=== PATIENT | female | born 1960 | race Caucasian/White ===

== ENCOUNTER 2018-07-30 16:58 | Emergency (ER) | payer SELFPAY ==
[2018-07-30 17:00] VITALS: BP 152/90
[2018-07-30] MEDS ORDERED: MVI, ADULT NO.4 WITH VIT K 10 ML, FOLIC ACID SYRINGE for ER 1 MG, THIAMINE INJ 100 MG i... IV ONE ×4 (17:15)
[2018-07-30 17:38] LABS: BASO % 1 % (0-3); EOS # 0.1 x10^3/uL (0.0-0.7); EOS % 2 % (0-3); HEMATOCRIT 42.2 % (36.0-47.0); HEMOGLOBIN 14.6 g/dL (12.0-15.5); LYMPH # 1.5 x10^3/uL (1.0-4.8); LYMPH % 30 % (24-48); MEAN CORPUSCULAR HEMOGLOBIN 34 pg (25-35); MEAN CORPUSCULAR HGB CONC 35 g/dL (31-37); MEAN CORPUSCULAR VOLUME 99 fL (79-100); MONO # 0.5 x10^3/uL (0.0-1.1); MONO % 10 % (0-9); NEUT # 2.8 x10^3uL (1.8-7.7); NEUT % 57 % (31-73); PLATELET COUNT 287 x10^3/uL (140-400); RED BLOOD COUNT 4.27 x10^6/uL (3.50-5.40); RED CELL DISTRIBUTION WIDTH 12.8 % (11.5-14.5)
--- NOTE | 2018-07-30 17:48 | RAD ---
CT HEAD AND CERVICAL SPINE WO Indication: Patient fell. MSC, intoxication, unccoperative. Attempts to rescan motion unsuccessful. Pt was banging inside of gantry during scan and trying to jump from table, though secured and technologist in room. Best exam given circumstances.
Exposure: One or more of the following individualized dose reduction techniques were utilized for this examination: 1. Automated exposure control 2. Adjustment of the mA and/or kV according to patient size 3. Use of iterative reconstruction technique. Comparison: None are available. Contrast: None Suboptimal exam quality, due to patient movement. HEAD: No definite acute intracranial hemorrhage or abnormal extra-axial fluid collection. No evidence of midline shift. Mild prominence of ventricles and sulci as can be seen with mild atrophy. Orbits grossly unremarkable. Paranasal sinuses grossly clear. No obvious depressed skull fracture although a point of impact is not known. Impression: Suboptimal exam, due to image degradation by patient motion. No definite acute findings, but consider follow-up imaging when feasible. CERVICAL SPINE: Poor visualization of the cervical occipital junction but appears to be intact. No definite acute fracture. Mild rotation of C1 relative to C2 could be positional or due to atlantoaxial rotary fixation if of concern. Mild degenerative spondylosis. No evidence of high-grade central osseous spinal stenosis. No evidence of an acute fracture. No significant subluxation. No significant facet joint subluxation. Degenerative changes at the facet joints. No evidence of prevertebral soft tissue swelling or hematoma. Lung apices appear grossly clear with mild chronic type cystic or emphysematous change in the right lung apex. Impression: Suboptimal exam due to image degradation by patient motion. Degenerative changes. No definite acute fracture or subluxation. Electronically signed by: Shashank Felton MD (07/30/2018 5:44 PM) [place] [id number]
[2018-07-30 17:56] LABS: ALBUMIN 4.1 g/dL (3.4-5.0); ALBUMIN/GLOBULIN RATIO 1.1 (1.0-1.7); CALCIUM 9.1 mg/dL (8.5-10.1); GFR 57.4; POTASSIUM 3.8 mmol/L (3.5-5.1); TOTAL BILIRUBIN 0.2 mg/dL (0.2-1.0)
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
== END 2018-07-30 18:00 | disposition home or self-care (01) ==
LOC: ER 16:58
DX: F10.129 Alcohol abuse with intoxication, unspecified (principal); R51 Headache; R45.851 Suicidal ideations; Y90.9 Presence of alcohol in blood, level not specified; W18.30XA Fall on same level, unspecified, initial encounter; Y93.89 Activity, other specified; Y92.89 Other specified places as the place of occurrence of the external cause; Y99.8 Other external cause status
CPT/HCPCS: 36415; 70450; 72125; 80053; 85025; 99284

== ENCOUNTER 2018-07-31 11:40 | Inpatient (IN) | payer OTHER ==
[2018-07-31] VITALS (8 sets, daily range): BP systolic 151–196; BP diastolic 73–117
[~2018-07-31] VITALS: Ht 167.6 cm; Wt 70.3 kg
--- NOTE | 2018-07-31 12:26 | EKG ---
[address] [address] Test Date: 2018-07-31 Test Time: 12:06:41 Pat Name: ETHAN SMITH Department: Room: Gender: F Periodontist: : 1960 Requested By: MANISHA DOS SANTOS Order Number: [id number] Reading MD: Measurements Intervals [place] Rate: 93 P: 43 IN: 138 QRS: 83 QRSD: 110 T: 51 QT: 372 QTc: 465 Interpretive Statements SINUS RHYTHM QRS(T) CONTOUR ABNORMALITY CONSIDER INFERIOR MYOCARDIAL DAMAGE POSSIBLY ABNORMAL ECG RI6.01 Unconfirmed report No previous ECG available for comparison
[2018-07-31 12:37] LABS: BASO % 1 % (0-3); EOS # 0.1 x10^3/uL (0.0-0.7); EOS % 1 % (0-3); HEMATOCRIT 43.9 % (36.0-47.0); HEMOGLOBIN 14.9 g/dL (12.0-15.5); LYMPH # 1.2 x10^3/uL (1.0-4.8); LYMPH % 16 % (24-48); MEAN CORPUSCULAR HEMOGLOBIN 34 pg (25-35); MEAN CORPUSCULAR HGB CONC 34 g/dL (31-37); MEAN CORPUSCULAR VOLUME 99 fL (79-100); MONO # 0.8 x10^3/uL (0.0-1.1); MONO % 11 % (0-9); NEUT # 5.5 x10^3uL (1.8-7.7); NEUT % 71 % (31-73); PLATELET COUNT 309 x10^3/uL (140-400); RED BLOOD COUNT 4.42 x10^6/uL (3.50-5.40); WHITE BLOOD COUNT 7.7 x10^3/uL (4.0-11.0)
[2018-07-31] MEDS ORDERED: SODIUM BICARB ADULT 8.4% 50 MEQ/50 ML DISP.SYRIN. IV ONE (12:45)
[2018-07-31 12:51] LABS: ALBUMIN 3.9 g/dL (3.4-5.0); ALBUMIN/GLOBULIN RATIO 1.1 (1.0-1.7); GFR 57.4; POTASSIUM 3.9 mmol/L (3.5-5.1); TOTAL BILIRUBIN 0.2 mg/dL (0.2-1.0); TOTAL PROTEIN 7.6 g/dL (6.4-8.2)
[2018-07-31] MEDS ORDERED: IV NORMAL SALINE 1,000ML 1,000 ML IV ONE (13:00)
[2018-07-31 13:03] LABS: ACETAMIN < 2.0 mcg/mL (10-30); ETHANOL 314 mg/dL (0-10)
--- NOTE | 2018-07-31 14:20 | PHYS DOC ---
Past History Past Medical History: Alcoholism, Hypertension Past Surgical History: No Surgical History Alcohol Use: Heavy Drug Use: None Adult General Chief Complaint Chief Complaint: SUICDAL IDEATION HPI HPI 57 yo female presents EMS accompanied by police for suicide attempt and drug overdose. The patient was reported to take a handful of sertraline 50 mg tablets. Police was called. While the police were there the patient went into the bathroom and took additional sertraline and fluoxetine pills. It is estimated that she took at least 20 sertraline 50 mg tablets and at least 15 fluoxetine 20 mg tablets. Patient has also been drinking alcohol this morning. The [place] [employer] is seeking involuntary admission. The patient has some nausea, but denies any other complaints. Review of Systems Review of Systems Constitutional: Denies fever or chills [] Eyes: Denies change in visual acuity, redness, or eye pain [] HENT: Denies nasal congestion or sore throat [] Respiratory: Denies cough or shortness of breath [] Cardiovascular: No additional information not addressed in HPI [] GI: nausea, vomiting [] : Denies dysuria or hematuria [] Musculoskeletal: Denies back pain or joint pain [] Integument: Denies rash or skin lesions [] Neurologic: Denies headache, focal weakness or sensory changes [] Endocrine: Denies polyuria or polydipsia [] All other systems were reviewed and found to be within normal limits, except as documented in this note. Current Medications Current Medications Current Medications Medications (Trade) Dose Ordered Sig/Riley Start Time Stop Time Status Last Admin Dose Admin Sodium Bicarbonate (Sodium Bicarb Adult 8.4% Syr) 100 meq 1X ONCE 07/31/18 12:45 07/31/18 12:46 DC 07/31/18 12:59 100 MEQ Sodium Chloride 1,000 ml @ 1,000 mls/hr 1X ONCE 07/31/18 13:00 07/31/18 13:59 DC 07/31/18 12:58 1,000 MLS/HR Allergies Allergies Allergies Coded Allergies Type Severity Reaction Last Updated Verified Penicillins Allergy Intermediate 07/30/18 Yes Physical Exam Physical Exam Constitutional: Well developed, well nourished, no acute distress, non-toxic appearance. [] HENT: Normocephalic, atraumatic, bilateral external ears normal, oropharynx moist, no oral exudates, nose normal. [] Eyes: PERRLA, EOMI, conjunctiva normal, no discharge. [] Neck: Normal range of motion, no tenderness, supple, no stridor. [] Cardiovascular:Heart rate regular rhythm, tachycardic, rate 114, no murmur [] Lungs & Thorax: Bilateral breath sounds clear to auscultation [] Abdomen: Bowel sounds normal, soft, no tenderness, no masses, no pulsatile masses. [] Skin: Warm, dry, no erythema, no rash. [] Back: No tenderness, no CVA tenderness. [] Extremities: No tenderness, no cyanosis, no clubbing, ROM intact, no edema. [] Neurologic: Alert and oriented X 3, normal motor function, normal sensory function, no focal deficits noted. [] Psychologic: Affect depressed, judgement impaired, mood depressed. [] Current Patient Data Vital Signs Vital Signs Date Time Temp Pulse Resp B/P (MAP) Pulse Ox O2 Delivery O2 Flow Rate FiO2 07/31/18 13:49 114 20 165/95 (118) 95 Room Air 07/31/18 11:40 97.8 Lab Results Laboratory Tests Test 07/31/18 12:15 White Blood Count 7.7 x10^3/uL (4.0-11.0) # Red Blood Count 4.42 x10^6/uL (3.50-5.40) Hemoglobin 14.9 g/dL (12.0-15.5) Hematocrit 43.9 % (36.0-47.0) Mean Corpuscular Volume 99 fL (79-100) Mean Corpuscular Hemoglobin 34 pg (25-35) Mean Corpuscular Hemoglobin Concent 34 g/dL (31-37) Red Cell Distribution Width 13.0 % (11.5-14.5) Platelet Count 309 x10^3/uL (140-400) Neutrophils (%) (Auto) 71 % (31-73) Lymphocytes (%) (Auto) 16 % (24-48) L Monocytes (%) (Auto) 11 % (0-9) H Eosinophils (%) (Auto) 1 % (0-3) Basophils (%) (Auto) 1 % (0-3) Neutrophils # (Auto) 5.5 x10^3uL (1.8-7.7) Lymphocytes # (Auto) 1.2 x10^3/uL (1.0-4.8) Monocytes # (Auto) 0.8 x10^3/uL (0.0-1.1) Eosinophils # (Auto) 0.1 x10^3/uL (0.0-0.7) Basophils # (Auto) 0.0 x10^3/uL (0.0-0.2) Sodium Level 133 mmol/L (136-145) L Potassium Level 3.9 mmol/L (3.5-5.1) Chloride Level 97 mmol/L (98-107) L Carbon Dioxide Level 21 mmol/L (21-32) Anion Gap 15 (6-14) H Blood Urea Nitrogen 6 mg/dL (7-20) L Creatinine 1.0 mg/dL (0.6-1.0) Estimated GFR (Cockcroft-Gault) 57.4 BUN/Creatinine Ratio 6 (6-20) Glucose Level 127 mg/dL (70-99) H Calcium Level 9.0 mg/dL (8.5-10.1) Total Bilirubin 0.2 mg/dL (0.2-1.0) Aspartate Amino Transferase (AST) 31 U/L (15-37) Alanine Aminotransferase (ALT) 29 U/L (14-59) Alkaline Phosphatase 88 U/L (46-116) Total Protein 7.6 g/dL (6.4-8.2) Albumin 3.9 g/dL (3.4-5.0) Albumin/Globulin Ratio 1.1 (1.0-1.7) Acetaminophen Level < 2.0 mcg/mL (10-30) L Acetaminophen Last Dose Date 07/31/18 Acetaminophen Last Dose Time 1100 Ethyl Alcohol Level 314 mg/dL (0-10) H EKG EKG Sinus rhythm, rate 93, normal axis, no ST elevations or depressions, QTC 465.[] Radiology/Procedures Radiology/Procedures [] Course & Med Decision Making Course & Med Decision Making Pertinent Labs and Imaging studies reviewed. (See chart for details) The patient has been cooperative in the ED. She is accompanied by police. Her initial EKG showed a prolonged QTC of 465. She ingested these pills 90 minutes prior to arrival. I consult did poison control and they recommended 2 A of bicarbonate and serial EKGs. Her repeat EKG shows sinus tachycardia, rate 114, QTc of 472. The patient is alert and oriented. She is not complaining of anything at this time. Her alcohol level is over 300. Acetaminophen is negative. Drug screen is pending. I discussed the patient with the hospitalist, Dr. John and he has agreed to admit the patient to the ICU. Psychiatric consult was pending. Involuntary admission paperwork is also pending psych eval. 60 minutes of critical care time was spent on this patient exclusive of other billable procedures. [] Dragon Disclaimer Dragon Disclaimer This electronic medical record was generated, in whole or in part, using a voice recognition dictation system. Departure Departure: Impression: Primary Impression: Suicide attempt by multiple drug overdose Additional Impressions: Prolonged QT interval Alcohol intoxication Disposition: ADMITTED INPATIENT Condition: GUARDED Referrals: PCP,NO (PCP) Problem Qualifiers Primary Impression: Suicide attempt by multiple drug overdose Encounter type: initial encounter Qualified Codes: T50.902A - Poisoning by unspecified drugs, medicaments and biological substances, intentional self-harm , initial encounter Additional Impressions: Alcohol intoxication Complication of substance-induced condition: uncomplicated Qualified Codes: F10.920 - Alcohol use, unspecified with intoxication, uncomplicated MANISHA DOS SANTOS DO Jul 31, 2018 14:20
[2018-07-31 15:13] LABS: BARBITURATES NEG (NEG); BENZODIAZEPINES NEG (NEG); CANNABINOIDS NEG (NEG); COCAINE NEG (NEG); METHADONE NEG (NEG); OPIATES NEG (NEG); PHENCYCLIDINE NEG (NEG)
[2018-07-31 15:14] LABS: AMPHETAMINE/METHAMPHETAMINE NEG (NEG)
[2018-07-31 15:19] LABS: BACTERIA,URINE MOD /HPF (0-FEW); BILIRUBIN,URINE NEG (NEG); CLARITY,URINE HAZY; COLOR,URINE YELLOW; GLUCOSE,URINE NEG (NEG); HYALINE CASTS, URINE OCC /HPF; NITRITE,URINE NEG (NEG); RBC,URINE 0 /HPF (0-2); SQUAMOUS EPITHELIAL CELL,UR FEW /LPF; UROBILINOGEN,URINE 0.2 mg/dL (0.2 mg/dL)
[2018-07-31] MEDS ORDERED: ONDANSETRON PF 4 MG/2 ML VIAL. IV PRN (15:30)
[2018-07-31] MEDS ORDERED: LORazepam 2 MG/ML VIAL IV PRN ×2 (17:30)
[2018-07-31] MEDS ORDERED: chlordiazePOXIDE HCL 25 MG CAPSULE PO PRN ×2 (17:30)
[2018-07-31] MEDS: IV NORMAL SALINE 1,000ML 1,000 ML IV SCH (18:09)
[2018-07-31] MEDS: LORazepam 2 MG/ML VIAL IV PRN ×3 (20:06→23:35)
[2018-07-31] MEDS ORDERED: IV NORMAL SALINE 1,000ML 1,000 ML IV SCH (20:30)
[2018-07-31] MEDS ORDERED: diphenhydrAMINE 50 MG/ML VIAL IVP PRN (20:30)
[2018-07-31] MEDS ORDERED: HALOPERIDOL LACT 5 MG/ML VIAL. IM PRN (20:30)
[2018-07-31] MEDS ORDERED: MVI, ADULT NO.4 WITH VIT K 10 ML, THIAMINE INJ 100 MG, FOLIC ACID INJ 1 MG in IV NORMAL... IV ONE ×4 (21:00)
[2018-07-31 21:31] LABS: CREATININE 0.9 mg/dL (0.6-1.0); GFR 64.8; POTASSIUM 3.6 mmol/L (3.5-5.1)
[2018-07-31] MEDS: cloNIDine HCL 0.1 MG TABLET PO PRN (22:22)
[2018-08-01] VITALS (32 sets, daily range): BP systolic 121–212; BP diastolic 55–105
[2018-08-01] MEDS: cloNIDine HCL 0.1 MG TABLET PO PRN (00:59)
[2018-08-01] MEDS: ENALAPRILAT 2.5 MG/2 ML VIAL. IV PRN ×2 (03:11→14:06)
[2018-08-01] MEDS: IV NORMAL SALINE 1,000ML 1,000 ML IV SCH ×2 (04:30→14:59)
--- NOTE | 2018-08-01 06:09 | EKG ---
[address] [address] Test Date: 2018-07-31 Test Time: 21:59:10 Pat Name: ETHAN SMITH Department: Room: [facility]02 1 Gender: F Brim Raiser: : 1960 Requested By: RODRÍGUEZ TERRY Order Number: [id number] Reading MD: Measurements Intervals [place] Rate: 113 P: 69 MD: 132 QRS: 94 QRSD: 112 T: 54 QT: 352 QTc: 489 Interpretive Statements SINUS TACHYCARDIA RIGHTWARD AXIS QRS(T) CONTOUR ABNORMALITY CONSIDER ANTEROLATERAL MYOCARDIAL DAMAGE CONSIDER INFERIOR MYOCARDIAL DAMAGE POSSIBLY ABNORMAL ECG RI6.01 No previous ECG available for comparison
--- NOTE | 2018-08-01 06:10 | EKG ---
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
[2018-08-01 06:24] LABS: HEMATOCRIT 40.2 % (36.0-47.0); HEMOGLOBIN 13.9 g/dL (12.0-15.5); RED BLOOD COUNT 4.13 x10^6/uL (3.50-5.40); RED CELL DISTRIBUTION WIDTH 12.9 % (11.5-14.5); WHITE BLOOD COUNT 8.5 x10^3/uL (4.0-11.0)
[2018-08-01 06:31] LABS: CALCIUM 8.1 mg/dL (8.5-10.1); CREATININE 0.8 mg/dL (0.6-1.0); GFR 74.2; POTASSIUM 3.7 mmol/L (3.5-5.1)
[2018-08-01] MEDS: MULTIVITAMIN with MINERAL TABLET. PO SCH (08:48)
[2018-08-01] MEDS: FOLIC ACID 1 MG TABLET PO SCH (08:48)
[2018-08-01] MEDS: THIAMINE 100 MG TABLET. PO SCH (08:48)
[2018-08-01] MEDS ORDERED: THIAMINE INJ 100 MG in IV NORMAL SALINE 50ML 50 ML IV SCH (09:00)
[2018-08-01] MEDS ORDERED: ESCI10TA2 PO (16:20)
[2018-08-01] MEDS ORDERED: LOSA50TA14 PO (16:20)
[2018-08-01] MEDS ORDERED: ENALAPRILAT 2.5 MG/2 ML VIAL. IV PRN (17:15)
--- NOTE | 2018-08-01 18:02 | PDOC ---
Exam Note: Mark Note: Please also refer to the separate dictated note~for this date of service dictated separately.~Patient seen individually. Discussed the patient with Nursing staff reviewed the chart.~Reviewed interim history and current functioning. Reviewed vital signs,~Labs/ Radiology~and current medications noted below. Continue current treatment with the changes noted in the dictated addendum note Assessment: Vital Signs: Vital Signs Date Time Temp Pulse Resp B/P (MAP) Pulse Ox O2 Delivery O2 Flow Rate FiO2 08/01/18 17:42 98.8 08/01/18 17:00 114 29 190/82 (118) 97 Nasal Cannula 2.0 I&O Intake and Output 08/01/18 07:01 Intake Total 4880 ml Balance 4880 ml Intake Oral 1870 ml IV Total 3010 ml # Voids 11 Labs: Laboratory Tests Test 07/31/18 21:00 08/01/18 05:35 Sodium Level 137 mmol/L (136-145) 136 mmol/L (136-145) Potassium Level 3.6 mmol/L (3.5-5.1) 3.7 mmol/L (3.5-5.1) Chloride Level 100 mmol/L (98-107) 101 mmol/L (98-107) Carbon Dioxide Level 25 mmol/L (21-32) 23 mmol/L (21-32) Anion Gap 12 (6-14) 12 (6-14) Blood Urea Nitrogen 5 mg/dL (7-20) L 5 mg/dL (7-20) L Creatinine 0.9 mg/dL (0.6-1.0) 0.8 mg/dL (0.6-1.0) Estimated GFR (Cockcroft-Gault) 64.8 74.2 Glucose Level 96 mg/dL (70-99) 111 mg/dL (70-99) H Lactic Acid Level 2.0 mmol/L (0.4-2.0) Calcium Level 8.0 mg/dL (8.5-10.1) #L 8.1 mg/dL (8.5-10.1) L White Blood Count 8.5 x10^3/uL (4.0-11.0) Red Blood Count 4.13 x10^6/uL (3.50-5.40) Hemoglobin 13.9 g/dL (12.0-15.5) Hematocrit 40.2 % (36.0-47.0) Mean Corpuscular Volume 97 fL (79-100) Mean Corpuscular Hemoglobin 34 pg (25-35) Mean Corpuscular Hemoglobin Concent 35 g/dL (31-37) Red Cell Distribution Width 12.9 % (11.5-14.5) Platelet Count 259 x10^3/uL (140-400) Current Medications: Meds: Current Medications Sodium Bicarbonate (Sodium Bicarb Adult 8.4% Syr) 100 meq 1X ONCE IV Last administered on 07/31/18at 12:59; Start 07/31/18 at 12:45; Stop 07/31/18 at 12:46 ; Status DC Sodium Chloride 1,000 ml @ 1,000 mls/hr 1X ONCE IV Last administered on at 12:58; Start 07/31/18 at 13:00; Stop 07/31/18 at 13:59; Status DC Ondansetron HCl (Zofran) 4 mg PRN Q4HRS PRN IV NAUSEA/VOMITING Last administered on 08/01/18at 08:48; Start 07/31/18 at 15:30; Stop 08/01/18 at 15:29 ; Status DC Sodium Chloride 1,000 ml @ 100 mls/hr Q10H IV Last administered on 08/01/18at 14:59; Start 07/31/18 at 17:30 Chlordiazepoxide (Librium) 50 mg PRN Q1HR PRN PO For CIWA 8-14 Last administered on 07/31/18at 23:36; Start 07/31/18 at 17:30 Chlordiazepoxide (Librium) 100 mg PRN Q1HR PRN PO For CIWA 15 or greater; Start 07/31/18 at 17:30 Lorazepam (Ativan) 2 mg PRN Q1HR PRN IV For CIWA 8-14 Last administered on 07/31at 23:35; Start 07/31/18 at 17:30 Lorazepam (Ativan) 4 mg PRN Q1HR PRN IV For CIWA 15 or greater Last administered on 08/01/18at 02:05; Start 07/31/18 at 17:30 Lorazepam (Ativan) 2 mg PRN Q15MIN PRN IV ALCOHOL WITHDRAWAL; Start 07/31/18 at 17:30 Sodium Chloride 1,000 ml @ 100 mls/hr Q10H IV ; Start 07/31/18 at 20:30; Status Cancel Multivitamins/ Minerals 10 ml/ Thiamine HCl 100 mg/Folic Acid 1 mg/Sodium Chloride 1,011.2 ml @ 100 mls/ hr 1X ONCE IV Last administered on 07/31/18at 21:41; Start 07/31/18 at 21:00; Stop 08/01/18 at 07:06; Status DC Haloperidol Lactate (Haldol) 5 mg PRN Q4HRS PRN IM Hallucinatns,Confusn, Delirium Last administered on 08/01/18at 02:05; Start 07/31/18 at 20:30 Diphenhydramine HCl (Benadryl) 25 mg PRN Q15MIN PRN IVP EPS symptoms 2'Haldol admin Last administered on 08/01/18at 02:06; Start 07/31/18 at 20:30 Clonidine HCl (Catapres) 0.1 mg PRN Q1HR PRN PO SBP>180 OR DBP>100, MR X 3 Last administered on 08/01/18at 00:59; Start 07/31/18 at 20:30 Multivitamins/ Calcium (Thera-M Plus) 1 tab DAILY PO Last administered on at 08:48; Start 08/01/18 at 09:00 Folic Acid (Folic Acid) 1 mg DAILY PO Last administered on 08/01/18at 08:48; Start 08/01/18 at 09:00 Thiamine HCl 100 mg/Sodium Chloride 51 ml @ 100 mls/hr DAILY IV ; Start at 09:00; Stop 08/06/18 at 08:59; Status Cancel Thiamine HCl (Vitamin B-1) 100 mg DAILY PO Last administered on 08/01/18at 08:48 ; Start 08/01/18 at 09:00 Enalaprilat (Vasotec) 1.25 mg PRN Q4HRS PRN IV ELEVATED BP, SEE COMMENTS Last administered on 08/01/18at 14:06; Start 08/01/18 at 03:15; Stop 08/01/18 at 17:16 ; Status DC Enalaprilat (Vasotec) 2.5 mg PRN Q4HRS PRN IV ELEVATED BP, SEE COMMENTS; Start 08/01/18 at 17:15 Labetalol HCl (Normodyne) 20 mg Q4H PRN IVP HYPERTENSION, SEE COMMENTS; Start 08/01/18 at 17:15 Active Scripts Active Reported Escitalopram Oxalate 10 Mg Tablet 10 Mg PO DAILY Losartan Potassium 50 Mg Tablet 25 Mg PO DAILY I have reviewed the current psychotropics carefully including drug interactions. Risk benefit ratio favors no change other than as noted in my dictated progress note. Diagnosis: Problems: (1) Alcohol dependence (2) Major depressive disorder, recurrent episode (3) Impulse control disorder TRENT CANSECO MD Aug 01, 2018 18:02
--- NOTE | 2018-08-01 18:45 | HP ---
ADMIT DATE: 07/31/2018 HISTORY OF PRESENT ILLNESS: The patient is a 57-year-old female patient, who was brought to the Emergency Room by police for suicidal attempt and drug overdose. She reportedly took a handful of sertraline 50 mg tablets. The police were called in. While the police were there, the patient went into the bathroom and took additional sertraline and fluoxetine pills. It is estimated that she took around at least 20 sertraline and 50 mg tablets; at least 15 fluoxetine and 20 mg tablets. She has also been drinking alcohol on the day of admission. The [place] [employer] is seeking involuntary admission. She did have some nausea, but denied any other complaint. She was investigated in the Emergency Room and her EKG showed that she was in sinus rhythm at a rate of [address] segment elevation or depression. Her QTC interval was 465. Her blood alcohol level was over 300. Acetaminophen was negative and she was given bicarbonate and serial EKGs, and was admitted to Intensive Care Unit to get a psych consult and involuntary admission pending psych evaluation. PAST MEDICAL HISTORY: Significant for hypertension and bipolar disorder. She has been drinking vodka as well as firewhiskey and beer, has been drinking for a long time. PAST SURGICAL HISTORY: Unremarkable. ALLERGIES: PENICILLIN AND SULFA DRUGS. MEDICATIONS: She is currently on following medications: She is on losartan potassium 25 mg once a day, escitalopram oxalate 10 mg once a day. FAMILY HISTORY: She has one sister and 3 brothers, one brother as he was electrocuted. Her father of brain cancer and mother also because of cancer. SOCIAL HISTORY: She is for the last 20 years. She has 3 kids from previous marriage. Her has 2 kids from a previous marriage and stepped up to the daughter. 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 REVIEW OF SYSTEMS: The patient denied any blurring of vision. She did have bilateral cataract extraction, but denied any glaucoma or macular degeneration. Denied any earache, tinnitus or deafness. Denied any nosebleeds, stuffy nose, postnasal drip. Denied any sore throat, sore tongue, toothache, hoarseness of voice or difficulty swallowing. Denied any nausea, vomiting, diarrhea or constipation. Denied any hematemesis, melena or hematochezia. Denied any dysuria, frequency or hematuria. Denied any chills, rigors or fever. PHYSICAL EXAMINATION: GENERAL: On arrival to the Emergency Room, she was very restless, agitated, combative. She was combative with the emergency medical service personnel; however, there was no pallor, jaundice, cyanosis, or thyromegaly. No jugular venous distension. No limb edema. VITAL SIGNS: Her heart rate was 123, blood pressure was 183/102, temperature was 97.8, respiratory rate 20, and oxygen saturation was 96%. HEAD, EYES, EARS, NOSE AND THROAT: Showed normocephalic, atraumatic. NECK: Supple. HEART: Showed normal first and second heart sounds. No gallop, rub or murmur. CHEST: Clear to auscultation. No crepitation or rhonchi. ABDOMEN: Distended, soft, nontender. No guarding or rigidity. No organomegaly. All hernial orifice intact. Bowel sounds normal. NEUROLOGIC: She apparently was alert, oriented x 3, normal motor and sensory function with no focal deficit. LABORATORY DATA: On arrival showed that her serum sodium was 133, potassium 3.9, chloride 97, bicarbonate 21, anion gap of 15, BUN 6, creatinine 1, estimated GFR was 57 mL per minute. Her glucose 127, calcium 9. Total bilirubin, AST, ALT, alkaline phosphatase were normal. Her total protein was 7.6, albumin 3.9. Her white cell count was 7700, hemoglobin 15, hematocrit 44, MCV 99 and platelet count 309,000. Urinalysis essentially showed the urine was yellow, hazy with a pH of 7, specific gravity of 1.015 with a small amount of protein. The urine was negative for glucose, ketones, blood, nitrite and small amount of leukocyte esterase with 0 rbc's, 11-20 wbc's, moderate amount of bacteria. Her toxic screen showed blood alcohol level was 340 mg/dL. Urine toxic screen was negative for opiates, methadone, phencyclidine, amphetamine, methamphetamine, benzodiazepine, cocaine, and cannabinoids. The acetaminophen level was less than 2. Her nasal screen for MRSA by PCR was negative. She did have a CT scan of the head and cervical spine, which showed that there is no definite acute finding. Cervical spine CT scan showed no evidence of prevertebral soft tissue swelling or hematoma. Lung apices appear grossly clear with mild chronic type cystic or emphysematous changes in the right lung apex. So, the patient was admitted to the ICU, was continued on alcohol withdrawal protocol and continue to monitor her EKG. She is to be treated with bicarbonate in case her corrected QT interval was prolonged. RODRÍGUEZ TERRY MD DR: IBETH/esha JOB#: [id number] / [id number]
[2018-08-01] MEDS: LABETALOL 20 MG/4 ML DISP.SYRIN. IVP PRN (20:43)
--- NOTE | 2018-08-01 23:05 | PDOC ---
Exam Note: Mark Note: Please also refer to the separate dictated note~for this date of service dictated separately. Discussed the patient with Nursing staff reviewed the chart.~Reviewed interim history and current functioning. Reviewed vital signs,~ Labs/ Radiology~and current medications noted below. Continue current treatment with the changes noted in the dictated addendum note Assessment: Vital Signs: Vital Signs Date Time Temp Pulse Resp B/P (MAP) Pulse Ox O2 Delivery O2 Flow Rate FiO2 08/01/18 22:00 93 32 145/71 (95) 98 Nasal Cannula 2.0 08/01/18 21:12 97.5 I&O Intake and Output 08/01/18 07:01 Intake Total 4880 ml Balance 4880 ml Intake Oral 1870 ml IV Total 3010 ml # Voids 11 Labs: Laboratory Tests Test 08/01/18 05:35 White Blood Count 8.5 x10^3/uL (4.0-11.0) Red Blood Count 4.13 x10^6/uL (3.50-5.40) Hemoglobin 13.9 g/dL (12.0-15.5) Hematocrit 40.2 % (36.0-47.0) Mean Corpuscular Volume 97 fL (79-100) Mean Corpuscular Hemoglobin 34 pg (25-35) Mean Corpuscular Hemoglobin Concent 35 g/dL (31-37) Red Cell Distribution Width 12.9 % (11.5-14.5) Platelet Count 259 x10^3/uL (140-400) Sodium Level 136 mmol/L (136-145) Potassium Level 3.7 mmol/L (3.5-5.1) Chloride Level 101 mmol/L (98-107) Carbon Dioxide Level 23 mmol/L (21-32) Anion Gap 12 (6-14) Blood Urea Nitrogen 5 mg/dL (7-20) L Creatinine 0.8 mg/dL (0.6-1.0) Estimated GFR (Cockcroft-Gault) 74.2 Glucose Level 111 mg/dL (70-99) H Calcium Level 8.1 mg/dL (8.5-10.1) L Current Medications: Meds: Current Medications Sodium Bicarbonate (Sodium Bicarb Adult 8.4% Syr) 100 meq 1X ONCE IV Last administered on 07/31/18at 12:59; Start 07/31/18 at 12:45; Stop 07/31/18 at 12:46 ; Status DC Sodium Chloride 1,000 ml @ 1,000 mls/hr 1X ONCE IV Last administered on at 12:58; Start 07/31/18 at 13:00; Stop 07/31/18 at 13:59; Status DC Ondansetron HCl (Zofran) 4 mg PRN Q4HRS PRN IV NAUSEA/VOMITING Last administered on 08/01/18at 08:48; Start 07/31/18 at 15:30; Stop 08/01/18 at 15:29 ; Status DC Sodium Chloride 1,000 ml @ 100 mls/hr Q10H IV Last administered on 08/01/18at 14:59; Start 07/31/18 at 17:30 Chlordiazepoxide (Librium) 50 mg PRN Q1HR PRN PO For CIWA 8-14 Last administered on 07/31/18at 23:36; Start 07/31/18 at 17:30 Chlordiazepoxide (Librium) 100 mg PRN Q1HR PRN PO For CIWA 15 or greater; Start 07/31/18 at 17:30 Lorazepam (Ativan) 2 mg PRN Q1HR PRN IV For CIWA 8-14 Last administered on 07/31at 23:35; Start 07/31/18 at 17:30 Lorazepam (Ativan) 4 mg PRN Q1HR PRN IV For CIWA 15 or greater Last administered on 08/01/18at 02:05; Start 07/31/18 at 17:30 Lorazepam (Ativan) 2 mg PRN Q15MIN PRN IV ALCOHOL WITHDRAWAL; Start 07/31/18 at 17:30 Sodium Chloride 1,000 ml @ 100 mls/hr Q10H IV ; Start 07/31/18 at 20:30; Status Cancel Multivitamins/ Minerals 10 ml/ Thiamine HCl 100 mg/Folic Acid 1 mg/Sodium Chloride 1,011.2 ml @ 100 mls/ hr 1X ONCE IV Last administered on 07/31/18at 21:41; Start 07/31/18 at 21:00; Stop 08/01/18 at 07:06; Status DC Haloperidol Lactate (Haldol) 5 mg PRN Q4HRS PRN IM Hallucinatns,Confusn, Delirium Last administered on 08/01/18at 02:05; Start 07/31/18 at 20:30 Diphenhydramine HCl (Benadryl) 25 mg PRN Q15MIN PRN IVP EPS symptoms 2'Haldol admin Last administered on 08/01/18at 02:06; Start 07/31/18 at 20:30 Clonidine HCl (Catapres) 0.1 mg PRN Q1HR PRN PO SBP>180 OR DBP>100, MR X 3 Last administered on 08/01/18at 00:59; Start 07/31/18 at 20:30 Multivitamins/ Calcium (Thera-M Plus) 1 tab DAILY PO Last administered on at 08:48; Start 08/01/18 at 09:00 Folic Acid (Folic Acid) 1 mg DAILY PO Last administered on 08/01/18at 08:48; Start 08/01/18 at 09:00 Thiamine HCl 100 mg/Sodium Chloride 51 ml @ 100 mls/hr DAILY IV ; Start at 09:00; Stop 08/06/18 at 08:59; Status Cancel Thiamine HCl (Vitamin B-1) 100 mg DAILY PO Last administered on 08/01/18at 08:48 ; Start 08/01/18 at 09:00 Enalaprilat (Vasotec) 1.25 mg PRN Q4HRS PRN IV ELEVATED BP, SEE COMMENTS Last administered on 08/01/18at 14:06; Start 08/01/18 at 03:15; Stop 08/01/18 at 17:16 ; Status DC Enalaprilat (Vasotec) 2.5 mg PRN Q4HRS PRN IV ELEVATED BP, SEE COMMENTS; Start 08/01/18 at 17:15 Labetalol HCl (Normodyne) 20 mg Q4H PRN IVP HYPERTENSION, SEE COMMENTS Last administered on 08/01/18at 20:43; Start 08/01/18 at 17:15 Nicotine (Nicoderm Cq 21mg) 1 patch DAILY TD ; Start 08/02/18 at 21:00 Active Scripts Active Reported Escitalopram Oxalate 10 Mg Tablet 10 Mg PO DAILY Losartan Potassium 50 Mg Tablet 25 Mg PO DAILY I have reviewed the current psychotropics carefully including drug interactions. Risk benefit ratio favors no change other than as noted in my dictated progress note. Diagnosis: Problems: (1) Bipolar affective disorder, mixed (2) Alcohol dependence (3) Impulse control disorder (4) Major depressive disorder, recurrent episode TRENT CANSECO MD Aug 01, 2018 23:05
[2018-08-02] VITALS (13 sets, daily range): BP systolic 127–178; BP diastolic 57–96
[2018-08-02] MEDS: IV NORMAL SALINE 1,000ML 1,000 ML IV SCH ×2 (00:16→12:26)
--- NOTE | 2018-08-02 00:24 | PN ---
DATE: 08/01/2018 SUBJECTIVE: The patient is resting slightly propped up in bed, in no apparent distress. She is awake, alert. On questioning her, denied any complaint. Nursing staff stated that she continued to have high blood pressure, that enalapril alone is not controlling. She is already on alcohol withdrawal protocol. She has been followed by [facility] and has had multiple EKGs. Once the patient is stabilized, she will be transferred to [facility] for inpatient psychiatric stabilization. PHYSICAL EXAMINATION: GENERAL: When I examined her this afternoon, she looked well and was clearly in no apparent respiratory distress. No pallor, jaundice, cyanosis or thyromegaly. No jugular venous distension. No limb edema. VITAL SIGNS: Her heart rate was 116, blood pressure 184/82, temperature was 97, respiratory rate was 28 and oxygen saturation was 97% on 2 liters of oxygen. The rest of clinical examination is unremarkable and has not really changed. LABORATORY DATA: Her white cell count was 8500, hemoglobin 13.9, hematocrit 40, MCV 97 and platelet count 259,000. Her chemistry showed that her serum sodium was 136, potassium 3.7, chloride 101, bicarbonate 23, anion gap of 12, BUN 5, creatinine 0.8, estimated GFR was 74. Her glucose was 111. Lactic acid came down to 2 and calcium was 8.1. Magnesium was 1.8. ASSESSMENT: 1. Overdose by sertraline and Prozac with prolongation of QT interval. 2. Suicide attempt. 3. Alcohol intoxication. 4. Hypertension. 5. Bipolar disorder. PLAN: To continue with alcohol withdrawal protocol. We will repeat her labs tomorrow and if she is hemodynamically and medically stable, she can be discharged to [place]. RODRÍGUEZ TERRY MD DR: IBETH/esha JOB#: [id number] / [id number]
[2018-08-02 06:24] LABS: HEMOGLOBIN 12.1 g/dL (12.0-15.5); RED BLOOD COUNT 3.55 x10^6/uL (3.50-5.40); RED CELL DISTRIBUTION WIDTH 12.8 % (11.5-14.5); WHITE BLOOD COUNT 8.2 x10^3/uL (4.0-11.0)
[2018-08-02 06:34] LABS: ALBUMIN 2.8 g/dL (3.4-5.0); ALBUMIN/GLOBULIN RATIO 0.9 (1.0-1.7); CALCIUM 8.3 mg/dL (8.5-10.1); CREATININE 0.8 mg/dL (0.6-1.0); GFR 74.2; MAGNESIUM 1.4 mg/dL (1.8-2.4); TOTAL BILIRUBIN 0.7 mg/dL (0.2-1.0); TOTAL PROTEIN 5.9 g/dL (6.4-8.2)
--- NOTE | 2018-08-02 06:52 | EKG ---
[address] [address] Test Date: 2018-07-31 Test Time: 16:06:42 Pat Name: ETHAN SMITH Department: Room: [facility] 1 Gender: F Supervisor Picking Crew: : 1960 Requested By: RODRÍGUEZ TERRY Order Number: [id number] Reading MD: Measurements Intervals [place] Rate: 109 P: 43 OK: 126 QRS: 95 QRSD: 106 T: 57 QT: 358 QTc: 484 Interpretive Statements SINUS TACHYCARDIA RIGHTWARD AXIS QRS(T) CONTOUR ABNORMALITY CONSIDER ANTEROLATERAL MYOCARDIAL DAMAGE POSSIBLY ABNORMAL ECG RI6.01 No previous ECG available for comparison
--- NOTE | 2018-08-02 06:52 | EKG ---
[address] [address] Test Date: 2018-07-31 Test Time: 18:00:11 Pat Name: ETHAN SMITH Department: Room: [facility] 1 Gender: F Soap Tender: : 1960 Requested By: RODRÍGUEZ TERRY Order Number: [id number] Reading MD: Measurements Intervals [place] Rate: 109 P: 62 IN: 146 QRS: 87 QRSD: 100 T: 55 QT: 356 QTc: 481 Interpretive Statements SINUS TACHYCARDIA QRS(T) CONTOUR ABNORMALITY CONSIDER ANTEROLATERAL MYOCARDIAL DAMAGE POSSIBLY ABNORMAL ECG RI6.01 No previous ECG available for comparison
--- NOTE | 2018-08-02 06:55 | EKG ---
[address] [address] Test Date: 2018-07-31 Test Time: 13:51:40 Pat Name: ETHAN SMITH Department: Room: [facility] 1 Gender: F Director Independent: : 1960 Requested By: MANISHA DOS SANTOS Order Number: [id number] Reading MD: Measurements Intervals [place] Rate: 114 P: 61 ID: 126 QRS: 94 QRSD: 100 T: 61 QT: 340 QTc: 472 Interpretive Statements SINUS TACHYCARDIA RIGHTWARD AXIS OTHERWISE NORMAL ECG RI6.01 Unconfirmed report No previous ECG available for comparison
[2018-08-02] MEDS ORDERED: POTASSIUM CHLORIDE 20MEQ 100 ML IV SCH ×3 (07:30→08:00)
[2018-08-02] MEDS ORDERED: DEXTROSE 5% IV ONE (07:30)
[2018-08-02] MEDS ORDERED: POTASSIUM CHLORIDE 20 MEQ TABLET.ER. PO ONE (07:30)
[2018-08-02] MEDS ORDERED: POTASSIUM CHLORIDE 20 MEQ TABLET.ER. PO SCH ×2 (07:30)
[2018-08-02] MEDS ORDERED: SODIUM PHOSPHATE 40 MMOL in IV DEXTROSE 5% 250 ML IV ONE (07:30)
[2018-08-02] MEDS ORDERED: SODIUM PHOSPHATE IV ONE (07:30)
[2018-08-02] MEDS ORDERED: MAGNESIUM SULFATE 2GM 50 ML IV ONE (07:45)
[2018-08-02] MEDS: THIAMINE 100 MG TABLET. PO SCH (08:07)
[2018-08-02] MEDS: MULTIVITAMIN with MINERAL TABLET. PO SCH (08:07)
[2018-08-02] MEDS: FOLIC ACID 1 MG TABLET PO SCH (08:08)
[2018-08-02] MEDS ORDERED: POTASSIUM & SODIUM PHOSPHATES PACKET. PO SCH (09:00)
[2018-08-02] MEDS ORDERED: MAGNESIUM SULFATE 2GM 50 ML IV SCH ×2 (09:00→10:00)
[2018-08-02] MEDS ORDERED: IPRATRPIUM/ALBUTEROL 0.5/2.5MG 3 ML NEBU. NEB PRN (11:00)
[2018-08-02] MEDS: LABETALOL 20 MG/4 ML DISP.SYRIN. IVP PRN (11:31)
--- NOTE | 2018-08-02 11:34 | RAD ---
AP chest, 08/02/2018: HISTORY: Expiratory wheezes, possible pneumonia The heart size and pulmonary vascularity are normal. No pulmonary infiltrate is seen. There is no evidence of pleural fluid. Old bilateral rib fractures are noted. IMPRESSION: No acute cardiopulmonary abnormality is detected. Electronically signed by: Jad Mar MD (08/02/2018 11:30 AM) [facility]
[2018-08-02] MEDS ORDERED: LOSARTAN 25 MG TABLET. PO SCH (15:30)
--- NOTE | 2018-08-02 16:01 | DS ---
DATE OF DISCHARGE: 07/31/2018 HOSPITAL COURSE: The patient is a 57-year-old female patient, who was admitted to the Emergency Room after she took an overdose of sertraline and Prozac in a suicidal attempt with resulted prolongation with QT interval. She was also intoxicated with alcohol and was admitted to the ICU and we have monitored her as an inpatient, was started on alcohol withdrawal protocol. She was extremely lethargic initially; however, her level of consciousness improved. She has been up and about today. She has eaten her lunch. As we discontinued her IV fluid, discontinued the indwelling Garces catheter and she was evaluated by the physical therapist, who basically evaluated her and stated that she is independent in all her activities of daily living and was able to ambulate without assistance or assistive devices and therefore the patient discharged to [facility] for inpatient detoxification. PHYSICAL EXAMINATION: GENERAL: When I saw her this afternoon, she looked well and was clearly in no apparent respiratory distress. No pallor, jaundice, cyanosis, or thyromegaly. No jugular venous distension. No limb edema. VITAL SIGNS: Her heart rate was 86, blood pressure was 149/70, temperature was 98.2, respiratory rate was 17 and oxygen saturation was 94% on room air. HEAD, EYES, EARS, NOSE AND THROAT: Showed normocephalic, atraumatic. NECK: Supple. HEART: Showed normal first and second heart sounds with no gallop or murmur. CHEST: Clear to auscultation. No crepitation or rhonchi. ABDOMEN: Distended, soft, nontender. No guarding or rigidity. No organomegaly. All hernial orifice intact. Bowel sounds normal. NEUROLOGIC: She was awake, alert, responding appropriately. All cranial nerves intact. She moves extremities without difficulty. She ambulates without assistance or assistive devices. LABORATORY DATA: This morning showed a white cell count of 8200, hemoglobin 12, hematocrit 35, MCV 99 and platelet count 288,000. Her serum sodium was 137, potassium 4, chloride 102, bicarbonate 27, anion gap of 8, BUN 7, creatinine 0.8, estimated GFR was 74 mL per minute. Her glucose was 112, calcium was 8.3, magnesium was 2.1. Total bilirubin, AST, ALT, alkaline phosphatase were normal. Total protein was 5.9, albumin was 2.8. Her toxic screen was positive for blood alcohol level of 314 mg/dL. However, the toxicology screen was negative for opiates, methadone, barbiturates, phencyclidine, amphetamine, methamphetamine, benzodiazepine, cocaine, and cannabinoids. Her urine culture was unremarkable. DISCHARGE MEDICATIONS: She was discharged to go to [facility] on losartan 25 mg once a day and Lexapro 10 mg once a day. FINAL DISCHARGE DIAGNOSES: 1. Overdose by sertraline and Prozac with resulted prolongation with QT interval has resolved. 2. Suicidal attempt by overdose as well as alcohol intoxication. 3. Alcohol intoxication, alcohol withdrawal. 4. Hypertension. 5. Bipolar disorder. RODRÍGUEZ TERRY MD DR: IBETH/esha JOB#: [id number] / [id number]
--- NOTE | 2018-08-02 19:27 | CONS ---
DATE OF CONSULTATION: 08/01/2018 PSYCHIATRIC CONSULTATION This late entry date of service 08/01/2017 covers elements not covered in my initial note. SUMMARY OF PROGRESS: I met with the patient in the evening of 08/01/2018. Discussed with nursing staff, reviewed the chart. IDENTIFYING DATA: The patient is a 57-year-old female seen in ICU bed 2, [facility], for a psychiatric consult requested by Dr. John after the patient was admitted with alcohol abuse and an overdose of 20 of the 50 mg sertraline and 15 of the 20 mg fluoxetine at home. This was her second visit to the Emergency Room within a very short period of time having being brought in by the police for a suicide attempt and drug overdosage. Reportedly, the [place] [employer] was seeking involuntary admission at the time of her admission. CHIEF COMPLAINT: "I used to see Dr. Melton, psychiatrist, but I have not seen him in a long time. I don't know." The patient is quite sedated somewhat withdrawn, is on the alcohol detox protocol and it was difficult to understand as a speech is low in rate and rhythm, low in volume. She is still somewhat depressed. She responded "I don't know" to the question when I asked her who is the outpatient psychiatrist she was seeing currently." HISTORY OF PRESENT ILLNESS: The patient has a long history of bipolar disorder and she states she has been on various psychotropics in the past, but much of her outpatient psychiatric interventions will be Dr. Kai Melton in [place], [place]. Dr. Melton has moved out of [place] many years ago and I am unsure who the patient is followed since then. She does live at home with her , has a history of significant alcohol abuse and most recently has just been on Lexapro 10 mg a day. She has been using unspecified amounts of alcohol on a daily basis. Her QT corrected interval on the EKG was elevated blood alcohol on admission was over 300. She denies active suicidal ideation, but her history is significant as above. She does have a history of mood swings, agitation and elation, racing thoughts alternating with being depressed and states she has been treated on Depakote and Seroquel in the past, amongst other psychotropics. PAST PSYCHIATRIC HISTORY: As above. She has been drinking vodka as well as firewhiskey and beer. MEDICAL HISTORY: Positive alcohol abuse, hypertension. PAST SURGICAL HISTORY: Unremarkable. ALLERGIES: PENICILLIN AND SULFA. CURRENT PSYCHOTROPICS: Lexapro 10 mg a day and she is on detox protocol for the alcohol. FAMILY HISTORY: Noncontributory for psychiatric problems. She has 1 sister, 3 brothers. One brother from electrocution. Father had brain cancer and from this. Mother because of cancer. SOCIAL HISTORY: The patient has been for the last 20 years. She has 3 children from a previous marriage. has 2 children from his previous marriage. The patient smokes 1-1/2 to 2 packets a day. 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 MENTAL STATUS EXAMINATION: The patient was seen individually in ICU bed 2. She is lying in bed, somewhat withdrawn, sedated consequent to the detox protocol. Speech moderate to marked latency, often responses monosyllabic. Abstraction fair, computation impaired, language function intact. Attention span is short. She remains depressed, withdrawn. No active suicidal or homicidal ideation, but as noted, her history of overdose has been significant. LABORATORY DATA: Reviewed. IMPRESSION: Bipolar 1 disorder, mixed versus depressed with psychotic features, alcohol abuse dependence, status post alcohol withdrawal, anxiety disorder, unspecified. Rest as above. PLAN: From a psychiatric standpoint patient is on the Librium detox protocol along with Haldol 5 mg IM q. 4 hours p.r.n. for psychosis and Ativan IV p.r.n. for alcohol withdrawal along with thiamine, multivitamin supplements. Once the detox has completed, she would probably benefit from the addition of Seroquel starting at 50 mg at bedtime, increasing gradually up to 150 or 200 mg a day and perhaps restarting Depakote at some point. Given the repeated visits to the ER significant alcohol history and the significant overdose, perhaps she should be considered for inpatient psychiatric stabilization after she is finished the detoxification and alcohol rehabilitation could follow after the inpatient psychiatric stabilization. Dr. John, thank you for the opportunity to participate in your patient's care. We will follow with you. MAN Anu CANSECO MD DR: CLAUDY/esha JOB#: [id number] / [id number]
[2018-08-02] MEDS ORDERED: NICOTINE 21MG PATCH. TD SCH (21:00)
== END 2018-08-02 15:50 | disposition home or self-care (01) | DRG 918 ==
LOC: ER 11:40 → ICU 15:44
PROVIDERS: ADMIT Internal Medicine; ATTEND Internal Medicine
DX: T43.222A Poisoning by selective serotonin reuptake inhibitors, intentional self-harm, initial encounter (principal); F10.239 Alcohol dependence with withdrawal, unspecified; F31.60 Bipolar disorder, current episode mixed, unspecified; F10.229 Alcohol dependence with intoxication, unspecified; F17.200 Nicotine dependence, unspecified, uncomplicated; F63.9 Impulse disorder, unspecified; Y90.8 Blood alcohol level of 240 mg/100 ml or more; I10 Essential (primary) hypertension; I45.81 Long QT syndrome; Z80.8 Family history of malignant neoplasm of other organs or systems; F41.9 Anxiety disorder, unspecified; Y92.89 Other specified places as the place of occurrence of the external cause; Z88.0 Allergy status to penicillin; Z88.2 Allergy status to sulfonamides; Z88.8 Allergy status to other drugs, medicaments and biological substances
CPT/HCPCS: 36415; 71045; 80048; 80053; 80307; 81001; 83605; 83735; 85025; 85027; 87086; 87641; 93005; 96361; 96374; G0480; G6039; J1200; J1630; J2060; J2405; J3475; J3490; J7620; 82003; 99291-25; J7030